=== PATIENT | female | born 1980 | race Caucasian/White ===

== ENCOUNTER 2022-07-01 14:50 | Emergency (ER) | payer SELFPAY ==
[2022-07-01 15:02] VITALS: BP 118/76; PULSE 70; RESP 20; TEMP 98; BMI 32.2
[2022-07-01 17:47] LABS: EPI CELLS 7 /uL (0-25.1); HYALINE CASTS 0 /uL (0-3.1); URINE APPEARANCE Error; URINE BACTERIA >9,000 /uL (0-1359); URINE BILIRUBIN NEGATIVE (NEGATIVE); URINE COLOR YELLOW; URINE GLUCOSE (UA) NEGATIVE (NEGATIVE); URINE KETONE NEGATIVE (NEGATIVE); URINE LEUK ESTERASE TRACE (NEGATIVE); URINE NITRITE POSITIVE (NEGATIVE); URINE PROTEIN NEGATIVE (NEGATIVE); URINE RBC 28 /uL (0-23.9); URINE UROBILINOGEN 0.2 mg/dL (0.2-1.0); URINE WBC 19 /uL (0-25.8)
[2022-07-01] MEDS ORDERED: CIPROFLOXACIN 500 MG TABLET (RESTRICTED TO ID) PO ONE (18:09)
== END 2022-07-01 18:48 | disposition home or self-care (01) ==
LOC: JERFT 14:50 → JER 14:50 → JERFT 18:48
DX: N30.01 Acute cystitis with hematuria (principal)
CPT/HCPCS: 81003; 87086; 87186; 99283-25